=== PATIENT | female | born 1930 | race Caucasian/White ===

== ENCOUNTER 2016-07-09 14:59 | Observation (INO) | payer MEDICARE, OTHER ==
--- NOTE | ~2016-07-09 | DS ---
Discharge Summary [facility] [address] [facility] [address] [facility] [place]. [address] NAME: TENNILLE MEDEIROS : 28 STATUS : DIS Danny PAT#: [id number] AGE: 86 ADM/REG DATE : 07/09/16 MR#: [id number] REPORT SERV DATE: 07/11/16 DICTATED BY: MERLYN JEAN-BAPTISTE DATE: 07/10/16 REPORT STATUS : Draft TRANSCRIBED BY: MODL DATE: 07/10/16 ADMISSION DATE: 07/09/2016 DISCHARGE DATE: 07/10/2016 DISCHARGE DIAGNOSES: 1. Acute kidney injury on chronic kidney disease with dehydration, improved with gentle hydration. 2. Nausea, resolved, onetime episode. 3. Muscle sore after nausea and vomiting. Abdomen and pelvis CT scan is negative. 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 Please see dictated H and P. HOSPITAL COURSE: She was admitted to hospital with acute kidney injury on chronic kidney disease and possible UTI, with nausea, vomiting. She is improved within 24 hours, significantly right now. there are no symptoms of dysuria or burning, or frequency. She is alert, awake, very pleasant. At the same time, she refused to have the rehab place, she is refusing home health either. She leaves alone, but she thinks she will get enough help at home. Otherwise, she does not recall any fever, any other diarrhea, any other sickness. She looks afebrile, very alert, no sickness. Therefore, the patient will be discharged to home after gentle hydration, and we will prescribe Bactrim for UTI. Remains in stable condition. She will be discharged to home after gentle hydration. DISCHARGE MEDICATIONS: Same as home medication. Bactrim DS four day dose and continue to use NSAID topical on her chest area for the pain control. EKL/MODL Merlyn Jean-Baptiste M.D. / [id number] CC: Arnoldo Barroso M.D.
--- NOTE | ~2016-07-09 | HP ---
History And Physical [address] [place]. [address] NAME: TENNILLE MEDEIROS : 28 STATUS : ADM Danny PAT#: [id number] AGE: 86 ADM/REG DATE : 07/09/16 MR#: [id number] REPORT SERV DATE: 07/09/16 DICTATED BY: COLLEEN HANSEN DATE: 07/09/16 REPORT STATUS : Draft TRANSCRIBED BY: AYDEE DATE: 07/09/16 DATE OF ADMISSION: 07/09/2016 CHIEF COMPLAINT: Nausea, vomiting, and diarrhea. HISTORY OF PRESENT ILLNESS: The patient is an 86-year-old, female with past history of hypertension, diabetes, hypothyroidism, urinary infection who presents after having continuous bouts of nausea and vomiting at 2 a.m. this morning. It has been continuous, constant moderate severity with dull pain due to so much nausea and vomiting. She has now developed mild left quadrant pain and one episode of loose stools and diarrhea. There have been no fevers, headaches, shortness of breath or chills. The patient has recently been treated for urinary tract infection one month ago and was also being treated for ITP under care of Dr. Bocanegra. The patient denies any urinary tract type symptoms aside from the nausea and vomiting. There are no worsening symptoms or relieving symptoms. Symptoms are worse but appeared to be slightly improved. CT of abdomen and pelvis has been unremarkable at this time. ADDITIONAL REVIEW OF SYSTEMS: A 10-point review of systems negative except for that noted in the HPI. PAST MEDICAL HISTORY: Diabetes, hypertension, breast cancer history. PAST SURGICAL HISTORY: Left breast removal in 1987, tonsillectomy, gallbladder, and appendectomy. SOCIAL HISTORY: No smoking, alcohol, or illicits. Lives alone, used to work for [employer]. FAMILY HISTORY: Brother with lung disease stage IV. ALLERGIES: NO KNOWN DRUG ALLERGIES. HOME MEDICATIONS: Vitamin C, aspirin, vitamin D, Decadron, iron polysaccharide, Osteo, lutein, multivitamin, niacin, Zocor, Januvia, bilberry, fish oil, ACTOplus, losartan hydrochlorothiazide, Co-enzyme Q10. PHYSICAL EXAMINATION: VITAL SIGNS: Blood pressure 145/82, temperature 97.4, pulse 89, respirations 14, and O2 sats 98%. GENERAL: No acute distress. Calm, pleasant. HEAD: Normocephalic, atraumatic. EYES: No scleral icterus. EOMI. ENT: Dry mucous membranes. Tongue midline. RESPIRATORY: Clear to auscultation. No wheezes, rales, or rhonchi. CV: Regular rate. No rubs or gallops. Normal pedal pulses. GI: Soft, nontender. Mild tenderness to left quadrant palpation but no rebound. History And Physical [address] [place]. [address] NAME: TENNILLE MEDEIROS : 28 STATUS : ADM Danny PAT#: [id number] AGE: 86 ADM/REG DATE : 07/09/16 MR#: [id number] REPORT SERV DATE: 07/09/16 DICTATED BY: COLLEEN HANSEN DATE: 07/09/16 REPORT STATUS : Draft TRANSCRIBED BY: AYDEE DATE: 07/09/16 : Deferred. MUSCULOSKELETAL: Moves all extremities x4. SKIN: Mild tenting but otherwise warm and dry. LYMPH: No cervical or supraclavicular lymphadenopathy. NEURO: Alert and oriented. Moves all extremities x4. Symmetrical smile. PSYCH: Appropriate mood and affect. HEME: No bleeding or bruising. DATA: EKG: Normal sinus rhythm, rate 89, QTc 435. CT abdomen and pelvis, no acute abnormalities on noncontrast CT abdomen and pelvis. CBC: Sodium 136, potassium 3.9, chloride 99, bicarb 25, BUN creatinine 46 and 1.56, glucose 252, calcium 9.5, magnesium 1.5. LFTs within normal limits. Lipase 321, troponin negative. Urinalysis; trace leukocyte esterase, moderate bacteria, 23 WBCs, 100 protein. WBC count 16.7, H and H 13.2 and 40.9, platelets 203. Portable chest, no acute cardiopulmonary disease. ASSESSMENT AND PLAN: 1. Urinary tract infection. 2. Acute kidney injury with chronic kidney disease. 3. Nausea, vomiting, diarrhea. 4. Idiopathic thrombocytopenic purpura history. 5. Hypertension. 6. Diabetes type 2. 7. Thyroid disease. 8. Hypomagnesemia. PLAN: 1. For UTI, we will start Rocephin sensitive on most recent E. coli treatment. The patient is on chronic steroids secondary to ITP, may require prolonged dosage. 2. CHRISTIANO. Check lytes, treat underlying urinary tract infection, but does have proteinuria, may require eventual Nephrology evaluation if no improvement. 3. CKD history. The patient reports that she has been holding Mobic after her diagnosis with low platelets. 4. Nausea, vomiting diarrhea with CT abdomen and pelvis negative, treat underlying UTI. 5. ITP history, stable. If not improved, see Dr. Bocanegra. We will hold heparin at this time. SCDs and TEDs, currently still continuing Decadron. 6. Hypertension. Monitor. 7. Diabetes type 2. Sliding scale insulin. Hold home medications. 8. Thyroid disease, on replacement. 9. Hypomagnesemia, IV replacement 3 g over 3 hours. All questions answered of the patient. Disposition; pending improvement while inpatient. History And Physical [address] [address] NAME: TENNILLE MEDEIROS : 28 STATUS : ADM Danny PAT#: [id number] AGE: 86 ADM/REG DATE : 07/09/16 MR#: [id number] REPORT SERV DATE: 07/09/16 DICTATED BY: COLLEEN HANSEN DATE: 07/09/16 REPORT STATUS : Draft TRANSCRIBED BY: MODDarrell DATE: 07/09/16 DDN/AYDEE Colleen Hansen MD / [id number] CC: Merlyn Brito M.D.
[2016-07-09 12:24] LABS: BASOPHILS 0.1 %; BASOPHILS ABSOLUTE 0.02 10/3/uL (0.0-0.16); EOSINOPHILS 0.1 %; EOSINOPHILS ABSOLUTE 0.02 10/3/uL (0.0-0.53); IMMATURE GRANULOCYTES 0.4 %; IMMATURE GRANULOCYTES ABSOLUTE 0.07 10/3/uL (0.0-0.11); LYMPHOCYTES ABSOLUTE 1.66 10/3/uL (0.67-4.30); MEAN CORPUS HGB CONC 32.3 g/dL (32.0-36.0); MEAN PLATELET VOLUME 10.5 fL (9.2-13.0); MONOCYTES 4.6 %; MONOCYTES ABSOLUTE 0.76 10/3/uL (0.21-1.20); NEUTROPHILS 84.8 %; NEUTROPHILS ABSOLUTE 14.12 10/3/uL (2.02-8.40)
[2016-07-09 12:25] LABS: ASCORBIC ACID (UR NOT ORDER) 40 (NEG); BILIRUBIN, URINE NEGATIVE (NEG); ER URINALYSIS TAT 0 Hrs 10 Mins; KETONE, URINE NEGATIVE (NEG); LEUKOCYTE ESTERASE(NOT OR TRACE (NEG); NITRITE (URINE) NEG (NEG); WBC (NOT ORDERED) (RFLEX) 23 (0-5)
[2016-07-09 12:26] LABS: ER CBC TAT 0 Hrs 16 Mins; HEMATOCRIT 40.9 % (36.0-48.0); HEMOGLOBIN 13.2 g/dL (12.0-16.0); MANUAL DIFF NO %; MEAN CORPUSCULAR HEMOGLOB 25.8 pg (26.0-34.0); PLATELET COUNT 203 10/3/uL (150-400); PROTIME (NOT ORD) 13.1 SEC (12.0-14.5); RBC DISTRIBUTION WIDTH 27.4 % (12.0-16.0); RED CELL COUNT 5.11 10/6/uL (4.0-5.6); WHITE BLOOD CELLS 16.7 10/3/uL (4.5-10.5)
[2016-07-09 12:32] LABS: PARTIAL THROMBO TIME 22.3 SEC (22.5-37.2)
[2016-07-09 12:34] LABS: ALKALINE PHOSPHATASE 78 U/L (45-117); CALCIUM, SERUM 9.5 MG/DL (8.5-10.4); CHEST PAIN PROFILE TAT 0 Hrs 24 Mins; CHLORIDE, SERUM 99 MMOL/L (96-112); CO2 (CARBON DIOXIDE) 25 MMOL/L (24-34); CREATININE 1.56 MG/DL (0.55-1.02); GFR AFRICAN AMERICAN 34 ML/MIN (>=60); GFR NON AFRICAN AMERICAN 30 ML/MIN (>=60); POTASSIUM, SERUM 3.9 MMOL/L (3.5-5.3); SGOT(AST) 35 U/L (5-40); SGPT(ALT) 36 U/L (5-65); SODIUM, SERUM 136 MMOL/L (135-148); TOTAL BILIRUBIN 0.3 MG/DL (0-1.2); TOTAL PROTEIN 10.2 G/DL (6.0-8.5); TROPONIN I 0.04 NG/ML (<0.05)
[2016-07-09 12:35] LABS: ALBUMIN 3.3 G/DL (3.5-5.0); BUN (BLOOD UREA NITROGEN) 46 MG/DL (6-23); DIRECT BILIRUBIN 0.1 MG/DL (0.0-0.4); GLUCOSE, SERUM 252 MG/DL (60-99); INDIRECT BILIRUBIN(NOT ORDER) 0.2 MG/DL (0.1-0.9)
[2016-07-09 12:45] LABS: PLATELET ESTIMATE ADQ (ADEQUATE)
[2016-07-09 12:46] LABS: MACROCYTES 1+ (5-10/OIF) (0-5/OIF); POLYCHROMASIA 1+ (2-5/OIF) (0-1/OIF)
[~2016-07-09 14:59] MED LIST: ACTOPLUS M15 MG/850 PO; ASAB PO; BILBERRY PO; CENTRUM PO; COENZYME Q10 PO; DEX4 PO; EZFE 200200 MG PO; HYZAAR 100/25 T1 TAB PO; JANUVIA100 MG PO; LEVOTHYROXIN100 MCG PO; LUTEIN PO; LUTEIN1 CAP PO; OTC EYE VITAMIN PO; VITAMIN C PO; VITAMIN D PO; ZOCOR40 PO
[2016-07-09] MEDS ORDERED: FISH OIL 1200MG PO (15:00)
[2016-07-09] MEDS ORDERED: JANUVIA100 MG PO (15:03)
[2016-07-09] MEDS ORDERED: [UNRECOGNIZED DRUG - OTHER] PO (15:04)
[2016-07-09] MEDS ORDERED: LOSARTAN/HCTZ 100-25 PO (15:05)
[2016-07-09] MEDS ORDERED: ZOCOR40 PO (15:06)
[2016-07-09] MEDS ORDERED: VITC500 PO (15:07)
[2016-07-09] MEDS ORDERED: MULTIVIT/MIN PO (15:07)
[2016-07-09] MEDS ORDERED: VITAMIN D31000 UNIT PO (15:07)
[2016-07-09] MEDS ORDERED: OSTEO BI-FLEX1 EACH PO (15:08)
[2016-07-09] MEDS ORDERED: ASAB PO (15:11)
[2016-07-09] MEDS ORDERED: CO Q-10 PO (15:11)
[2016-07-09] MEDS ORDERED: NIACIN 500 PO (15:11)
[2016-07-09 17:52] LABS: BASOPHILS 0.1 %; BASOPHILS ABSOLUTE 0.01 10/3/uL (0.0-0.16); EOSINOPHILS 0.2 %; EOSINOPHILS ABSOLUTE 0.02 10/3/uL (0.0-0.53); HEMOGLOBIN 12.2 g/dL (12.0-16.0); IMMATURE GRANULOCYTES 0.2 %; IMMATURE GRANULOCYTES ABSOLUTE 0.03 10/3/uL (0.0-0.11); LYMPHOCYTES 6.9 %; LYMPHOCYTES ABSOLUTE 0.86 10/3/uL (0.67-4.30); MANUAL DIFF NO %; MEAN CORPUSCULAR HEMOGLOB 26.3 pg (26.0-34.0); MEAN CORPUSCULAR VOLUME 79.9 fL (80-100); MEAN PLATELET VOLUME 10.3 fL (9.2-13.0); MONOCYTES 10.3 %; MONOCYTES ABSOLUTE 1.29 10/3/uL (0.21-1.20); NEUTROPHILS 82.3 %; NEUTROPHILS ABSOLUTE 10.27 10/3/uL (2.02-8.40); PLATELET COUNT 220 10/3/uL (150-400); RBC DISTRIBUTION WIDTH 27.2 % (12.0-16.0); RED CELL COUNT 4.63 10/6/uL (4.0-5.6); WHITE BLOOD CELLS 12.5 10/3/uL (4.5-10.5)
[2016-07-09 18:06] LABS: A/G RATIO 0.5 (0.7-1.9); ALKALINE PHOSPHATASE 73 U/L (45-117); BUN (BLOOD UREA NITROGEN) 45 MG/DL (6-23); CALCIUM, SERUM 8.7 MG/DL (8.5-10.4); CHLORIDE, SERUM 104 MMOL/L (96-112); CO2 (CARBON DIOXIDE) 22 MMOL/L (24-34); CREATININE 1.21 MG/DL (0.55-1.02); GFR AFRICAN AMERICAN 47 ML/MIN (>=60); GFR NON AFRICAN AMERICAN 40 ML/MIN (>=60); GLOBULIN 6.3 G/DL (2.5-4.1); GLUCOSE, SERUM 160 MG/DL (60-99); POTASSIUM, SERUM 3.5 MMOL/L (3.5-5.3); SGOT(AST) 29 U/L (5-40); SGPT(ALT) 33 U/L (5-65); SODIUM, SERUM 138 MMOL/L (135-148); TOTAL BILIRUBIN 0.3 MG/DL (0-1.2); TOTAL PROTEIN 9.3 G/DL (6.0-8.5)
[2016-07-09 18:12] LABS: CREATININE, URINE 84.8 MG/DL
[2016-07-09 18:14] LABS: ANISOCYTOSIS 4+ (>50/OIF) (0-5/OIF); PLATELET ESTIMATE ADQ (ADEQUATE)
[2016-07-09 18:15] LABS: ACANTHOCYTES OCC (0-2/OIF); HYPOCHROMIA 1+ (3-10/OIF) (0-2/OIF); SCHISTOCYTES OCC (0-2/OIF); TARGET CELLS OCC (1-2/OIF) (0-1/OIF)
[2016-07-09 18:16] LABS: ELLIPTOCYTES 1+ (3-10/OIF) (0-2/OIF); MACROCYTES 1+ (5-10/OIF) (0-5/OIF); MICROCYTES 1+ (5-10/OIF) (0-5/OIF)
[2016-07-10 05:37] LABS: BUN (BLOOD UREA NITROGEN) 41 MG/DL (6-23); CALCIUM, SERUM 8.6 MG/DL (8.5-10.4); CHLORIDE, SERUM 102 MMOL/L (96-112); CO2 (CARBON DIOXIDE) 20 MMOL/L (24-34); CREATININE 1.13 MG/DL (0.55-1.02); GFR AFRICAN AMERICAN 51 ML/MIN (>=60); GFR NON AFRICAN AMERICAN 44 ML/MIN (>=60); GLUCOSE, SERUM 185 MG/DL (60-99); POTASSIUM, SERUM 3.8 MMOL/L (3.5-5.3); SODIUM, SERUM 137 MMOL/L (135-148); TROPONIN I 0.04 NG/ML (<0.05)
[2016-07-10 05:41] LABS: BASOPHILS 0.1 %; BASOPHILS ABSOLUTE 0.01 10/3/uL (0.0-0.16); EOSINOPHILS 0 %; HEMATOCRIT 34.6 % (36.0-48.0); HEMOGLOBIN 11.3 g/dL (12.0-16.0); IMMATURE GRANULOCYTES 0.5 %; IMMATURE GRANULOCYTES ABSOLUTE 0.05 10/3/uL (0.0-0.11); LYMPHOCYTES 6.8 %; LYMPHOCYTES ABSOLUTE 0.68 10/3/uL (0.67-4.30); MANUAL DIFF NO %; MEAN CORPUS HGB CONC 32.7 g/dL (32.0-36.0); MEAN CORPUSCULAR HEMOGLOB 25.9 pg (26.0-34.0); MEAN CORPUSCULAR VOLUME 79.2 fL (80-100); MEAN PLATELET VOLUME 10.6 fL (9.2-13.0); MONOCYTES 0.3 %; MONOCYTES ABSOLUTE 0.03 10/3/uL (0.21-1.20); NEUTROPHILS 92.3 %; PLATELET COUNT 166 10/3/uL (150-400); RBC DISTRIBUTION WIDTH 27.5 % (12.0-16.0); RED CELL COUNT 4.37 10/6/uL (4.0-5.6); WHITE BLOOD CELLS 10.1 10/3/uL (4.5-10.5)
[2016-07-10 07:08] LABS: ANISOCYTOSIS 1+ (5-10/OIF) (0-5/OIF); GIANT PLATELET OCC; PLATELET ESTIMATE ADQ (ADEQUATE)
[2016-07-10] MEDS ORDERED: BACDS PO (14:09)
[2016-07-10] MEDS ORDERED: DICLOFENAC (14:11)
== END 2016-07-10 17:20 | disposition home or self-care (01) ==
LOC: ER 14:59 → CDU1 15:59
PROVIDERS: Emergency Medicine; Student in an Organized Health Care Education/Training Program
DX: E86.0 Dehydration (principal); N17.9 Acute kidney failure, unspecified; I12.9 Hypertensive chronic kidney disease with stage 1 through stage 4 chronic kidney disease, or unspecified chronic kidney disease; E11.22 Type 2 diabetes mellitus with diabetic chronic kidney disease; N39.0 Urinary tract infection, site not specified; N18.9 Chronic kidney disease, unspecified; E83.42 Hypomagnesemia; D69.3 Immune thrombocytopenic purpura; Z85.3 Personal history of malignant neoplasm of breast; Z79.82 Long term (current) use of aspirin; Z79.52 Long term (current) use of systemic steroids; Z79.899 Other long term (current) drug therapy; Z90.49 Acquired absence of other specified parts of digestive tract; Z90.89 Acquired absence of other organs
CPT/HCPCS: 71010; 74176; 80048; 80053; 80076; 81001; 82248; 82570; 82962; 83605; 83690; 83735; 83935; 84145; 84300; 84484; 85025; 85610; 85730; 87040; 87077; 87086; 87186; 93005; 96365; 96366; 96374; 96375; 96376; 97161-GP; 99285; A9270-GY; G0378; G8978-CK-GP; G8979-CI-GP; J2405